=== PATIENT | female | born 1990 | race Caucasian/White ===

== ENCOUNTER 2021-07-30 18:28 | Inpatient (IN) | payer OTHER ==
[2021-07-30 19:13] VITALS: BMI 25.8
[2021-07-30] MEDS ORDERED: guaiFENesin 200 MG/10 ML 10 ML UNIT-DOSE CUPS PO PRN (21:05)
[2021-07-30] MEDS ORDERED: MAGNESIUM CITRATE 300 ML BOTTLE PO PRN (21:05)
[2021-07-30] MEDS ORDERED: hydrOXYzine PAMOATE 25 MG CAPSULE (FP) PO PRN (21:05)
[2021-07-30] MEDS ORDERED: IBUPROFEN 400 MG TABLET (FP) PO PRN (21:05)
[2021-07-30] MEDS ORDERED: LOPERAMIDE HCL 2 MG CAPSULE PO PRN (21:05)
[2021-07-30] MEDS ORDERED: MAG HYDROX/AL HYDROX/SIMETH 30 ML UNIT-DOSE CUP PO PRN (21:05)
[2021-07-30] MEDS ORDERED: MAGNESIUM HYDROX 2400MG/30ML ORAL SUSPENSION 30 ML CUP PO PRN (21:05)
[2021-07-30] MEDS ORDERED: MELATONIN 5 MG TABLETS PO PRN (21:05)
[2021-07-30] MEDS ORDERED: P-EPHED 60MG/TRIPROLIDI 2.5MG TABLET PO PRN (21:05)
[2021-07-31] MEDS ORDERED: TUBERCULIN PPD 5 TU/0.1ML VIAL ID ONE (02:05)
[2021-07-31] MEDS: THIAMINE HCL 100 MG TABLET (FP) PO SCH ×2 (03:07→21:56)
[2021-07-31] MEDS: NICOTINE 10 MG CARTRIDGE (INHALER) IH PRN ×2 (03:08→22:10)
[2021-07-31 10:52] LABS: URINE APPEARANCE CLEAR; URINE BILIRUBIN NEGATIVE (NEGATIVE); URINE COLOR YELLOW; URINE GLUCOSE (UA) NEGATIVE (NEGATIVE); URINE KETONE NEGATIVE (NEGATIVE); URINE LEUK ESTERASE NEGATIVE (NEGATIVE); URINE NITRITE NEGATIVE (NEGATIVE); URINE PROTEIN NEGATIVE (NEGATIVE); URINE UROBILINOGEN 0.2 mg/dL (0.2-1.0)
[2021-07-31] MEDS: PRENATAL VITAMINS W/ FOLIC ACID TABLET (FP) PO SCH (11:01)
[2021-07-31] MEDS ORDERED: PATIENT'S OWN MEDICATION (NON-FORMULARY) (Hydroxyzine Hcl [Hydroxyzine Hcl] 25 MG Tablet) PO PRN (12:03)
[2021-07-31] MEDS: PATIENT'S OWN MEDICATION (NON-FORMULARY) (Levetiracetam [Levetiracetam] 750 MG Tablet) PO SCH ×2 (12:55→21:57)
[2021-07-31] MEDS: GABAPENTIN 100 MG PO SCH ×3 (12:58→21:57)
[2021-07-31] MEDS: SPIRONOLACTONE 25 MG PO SCH (12:58)
[2021-07-31] MEDS: CHOLECALCIFEROL (VIT D3) 1,000 UNIT (25 MCG) TABLET PO SCH (13:55)
[2021-07-31] MEDS: hydrOXYzine PAMOATE 25 MG CAPSULE (FP) PO PRN (21:58)
[2021-08-01] MEDS: hydrOXYzine PAMOATE 25 MG CAPSULE (FP) PO PRN (02:07)
[2021-08-01] MEDS: GABAPENTIN 100 MG PO SCH (07:07)
[2021-08-01 08:04] VITALS: BP 111/77; PULSE 60; TEMP 97.1
[2021-08-01] MEDS: NICOTINE 10 MG CARTRIDGE (INHALER) IH PRN (09:22)
[2021-08-01] MEDS: CHOLECALCIFEROL (VIT D3) 1,000 UNIT (25 MCG) TABLET PO SCH (09:29)
[2021-08-01] MEDS: PRENATAL VITAMINS W/ FOLIC ACID TABLET (FP) PO SCH (09:30)
[2021-08-01] MEDS: PATIENT'S OWN MEDICATION (NON-FORMULARY) (Levetiracetam [Levetiracetam] 750 MG Tablet) PO SCH (09:30)
[2021-08-01] MEDS: SPIRONOLACTONE 25 MG PO SCH (09:30)
== END 2021-08-01 10:20 | disposition left against medical advice (07) | DRG 770 ==
LOC: YASAS 18:28 → Y5N 07-31 01:20
PROVIDERS: ADMIT Allergy & Immunology; ATTEND Psychiatry & Neurology Pain Medicine
PROC: HZ42ZZZ Group Counseling for Substance Abuse Treatment, Cognitive-Behavioral (ICD-10-PCS; principal; 2021-07-31)
DX: F10.20 Alcohol dependence, uncomplicated (principal); F14.20 Cocaine dependence, uncomplicated; F13.20 Sedative, hypnotic or anxiolytic dependence, uncomplicated; F17.210 Nicotine dependence, cigarettes, uncomplicated; F19.282 Other psychoactive substance dependence with psychoactive substance-induced sleep disorder; F19.280 Other psychoactive substance dependence with psychoactive substance-induced anxiety disorder; F32.A Depression, unspecified; F90.9 Attention-deficit hyperactivity disorder, unspecified type; D64.9 Anemia, unspecified; K74.60 Unspecified cirrhosis of liver; Z87.19 Personal history of other diseases of the digestive system
CPT/HCPCS: 81003; 81025; C9803-CS; U0003; U0005

== ENCOUNTER 2021-09-06 10:44 | Inpatient (IN) | payer OTHER ==
[2021-09-06 11:17] VITALS: BMI 26.1
[2021-09-06] MEDS ORDERED: IBUPROFEN 400 MG TABLET (FP) PO PRN (12:53)
[2021-09-06] MEDS ORDERED: guaiFENesin 200 MG/10 ML 10 ML UNIT-DOSE CUPS PO PRN (12:53)
[2021-09-06] MEDS ORDERED: ACETAMINOPHEN 325 MG TABLET (FP) PO PRN (12:53)
[2021-09-06] MEDS ORDERED: LOPERAMIDE HCL 2 MG CAPSULE PO PRN (12:53)
[2021-09-06] MEDS ORDERED: MAGNESIUM CITRATE 300 ML BOTTLE PO PRN (12:53)
[2021-09-06] MEDS ORDERED: MAGNESIUM HYDROX 2400MG/30ML ORAL SUSPENSION 30 ML CUP PO PRN (12:53)
[2021-09-06] MEDS ORDERED: P-EPHED 60MG/TRIPROLIDI 2.5MG TABLET PO PRN (12:53)
[2021-09-06] MEDS ORDERED: NICOTINE 10 MG CARTRIDGE (INHALER) IH PRN (12:53)
[2021-09-06] MEDS ORDERED: MAG HYDROX/AL HYDROX/SIMETH 30 ML UNIT-DOSE CUP PO PRN (12:53)
[2021-09-06] MEDS ORDERED: hydrOXYzine PAMOATE 25 MG CAPSULE (FP) PO PRN (12:54)
[2021-09-06 15:15] VITALS: TEMP 97.1
[2021-09-06] MEDS: GABAPENTIN 100 MG CAPSULE PO SCH ×2 (15:30→21:33)
[2021-09-06] MEDS: LACTULOSE 20 GM/30 ML UDC (FOR ORAL USE ONLY) PO SCH ×2 (18:56→22:08)
[2021-09-06] MEDS: MELATONIN 5 MG TABLETS PO SCH (21:33)
[2021-09-06] MEDS: THIAMINE HCL 100 MG TABLET (FP) PO SCH (21:33)
[2021-09-06] MEDS: levETIRAcetam 250 MG TABLET PO SCH (22:08)
[2021-09-07] MEDS: GABAPENTIN 100 MG CAPSULE PO SCH ×3 (07:02→21:11)
[2021-09-07] MEDS: LACTULOSE 20 GM/30 ML UDC (FOR ORAL USE ONLY) PO SCH ×3 (07:03→21:11)
[2021-09-07] MEDS ORDERED: PATIENT'S OWN MEDICATION (NON-FORMULARY) (Lipase/Protease/Amylase [Pancreaze Dr 4,200 Unit PO SCH (10:00)
[2021-09-07] MEDS: PRENATAL VITAMINS W/ FOLIC ACID TABLET (FP) PO SCH (10:23)
[2021-09-07] MEDS: FOLIC ACID 1 MG TABLET (FP) PO SCH (10:24)
[2021-09-07] MEDS: levETIRAcetam 250 MG TABLET PO SCH ×2 (10:24→21:11)
[2021-09-07] MEDS: THIAMINE HCL 100 MG TABLET (FP) PO SCH ×2 (10:24→21:12)
[2021-09-07] MEDS: CHOLECALCIFEROL (VIT D3) 1,000 UNIT (25 MCG) TABLET PO SCH (11:49)
[2021-09-07] MEDS: SPIRONOLACTONE 25 MG TABLET PO SCH (11:49)
[2021-09-07] MEDS ORDERED: PNEUMOC 20-VAL CONJ-DIP CRM/PF 0.5 ML SYRINGE IM ONE (12:00)
[2021-09-07] MEDS: LIPASE/PROTEASE/AMYLASE 6,000 UNIT CAPSULE PO SCH (16:49)
[2021-09-07] MEDS: PATIENT'S OWN MEDICATION (NON-FORMULARY) (Lipase/Protease/Amylase [Pancreaze Dr 4,200 Unit PO SCH ×2 (16:51→16:52)
[2021-09-07] MEDS: MELATONIN 5 MG TABLETS PO SCH (21:11)
[2021-09-08] MEDS: LIPASE/PROTEASE/AMYLASE 6,000 UNIT CAPSULE PO SCH ×3 (07:57→16:43)
[2021-09-08] MEDS: LACTULOSE 20 GM/30 ML UDC (FOR ORAL USE ONLY) PO SCH ×2 (07:57→14:31)
[2021-09-08] MEDS: GABAPENTIN 100 MG CAPSULE PO SCH ×2 (07:57→14:31)
[2021-09-08] MEDS: SPIRONOLACTONE 25 MG TABLET PO SCH (10:47)
[2021-09-08] MEDS: CHOLECALCIFEROL (VIT D3) 1,000 UNIT (25 MCG) TABLET PO SCH (10:47)
[2021-09-08] MEDS: PRENATAL VITAMINS W/ FOLIC ACID TABLET (FP) PO SCH (10:47)
[2021-09-08] MEDS: FOLIC ACID 1 MG TABLET (FP) PO SCH (10:48)
[2021-09-08] MEDS: levETIRAcetam 250 MG TABLET PO SCH (10:48)
[2021-09-08] MEDS: THIAMINE HCL 100 MG TABLET (FP) PO SCH (10:49)
[2021-09-08 12:37] LABS: HEMATOCRIT 32.3 % (32.4-45.2); HEMOGLOBIN 10.6 GM/dL (10.7-15.3); MCH 31.7 pg (25.7-33.7); MCHC 32.8 g/dl (32.0-36.0); MEAN CELL VOLUME 96.5 fl (80-96); PLATELET COUNT 75 10^3/uL (134-434); RBC 3.35 M/mm3 (3.60-5.2); RDW 14.5 % (11.6-15.6)
[2021-09-08 12:51] LABS: CALCIUM 7.8 mg/dL (8.5-10.1)
[2021-09-08 12:52] LABS: ALBUMIN 1.8 g/dl (3.4-5.0); BLOOD UREA NITROGEN 6.7 mg/dL (7-18)
[2021-09-08 12:55] LABS: CREATININE 0.8 mg/dL (0.55-1.3)
[2021-09-08 12:56] LABS: BILIRUBIN,TOTAL 0.4 mg/dL (0.2-1); TOT PROT 4.5 g/dl (6.4-8.2)
[2021-09-08 15:32] VITALS: BP 123/84; PULSE 64
== END 2021-09-08 19:37 | disposition home or self-care (01) | DRG 772 ==
LOC: YASAS 10:44 → Y5N 14:37
PROVIDERS: ADMIT Allergy & Immunology; ATTEND Psychiatry & Neurology Pain Medicine
PROC: HZ42ZZZ Group Counseling for Substance Abuse Treatment, Cognitive-Behavioral (ICD-10-PCS; principal; 2021-09-06)
DX: F10.20 Alcohol dependence, uncomplicated (principal); F14.20 Cocaine dependence, uncomplicated; F12.20 Cannabis dependence, uncomplicated; F17.210 Nicotine dependence, cigarettes, uncomplicated; F33.9 Major depressive disorder, recurrent, unspecified; F90.9 Attention-deficit hyperactivity disorder, unspecified type; G40.909 Epilepsy, unspecified, not intractable, without status epilepticus; K70.30 Alcoholic cirrhosis of liver without ascites; K86.1 Other chronic pancreatitis; M54.50 Low back pain, unspecified; G89.29 Other chronic pain
CPT/HCPCS: 36415; 80053; 81025; 85027; 86780; 86803; 90677; C9803-CS; U0003; U0005